=== PATIENT | male | born 1960 | race Caucasian/White ===

== ENCOUNTER 2017-06-24 12:54 | Emergency (ER) | payer OTHER ==
[~2017-06-24] VITALS: Ht 175.3 cm; Wt 77.1 kg
[~2017-06-24 12:54] MED LIST: BENADRYL50 MG ORAL; PREDNISONE50 MG ORAL
[2017-06-24] MEDS ORDERED: METOPROLOL SUCC50 MG ORAL (13:11)
[2017-06-24 13:12] VITALS: BP 114/70
[2017-06-24] MEDS ORDERED: Aspirin Baby 81mg ORAL ONE (13:30)
[2017-06-24 13:50] LABS: BASOPHILS % (AUTO) 1.8 % (0.0-2.0); EOSINOPHILS % (AUTO) 6.4 % (0.0-3.0); LYMPHOCYTES % (AUTO) 32.4 % (20.0-45.0); MEAN CORPUSCULAR HEMOGLOBIN 31.5 PG (27.0-31.0); MEAN CORPUSCULAR HGB CONC 34.9 G/DL (32.0-36.0); MEAN CORPUSCULAR VOLUME 90 FL (80-99); MEAN PLATELET VOLUME 8.4 FL (6.5-10.1); MONOCYTES % (AUTO) 11.9 % (1.0-10.0); NEUTROPHILS % (AUTO) 47.5 % (45.0-75.0); PLATELET COUNT 179 K/UL (150-450); RED BLOOD COUNT 5.34 M/UL (4.70-6.10); RED CELL DISTRIBUTION WIDTH 10.6 % (11.6-14.8); WHITE BLOOD COUNT 6.5 K/UL (4.8-10.8)
[2017-06-24 14:02] LABS: ANION GAP 11 mmol/L (5-15); CALCIUM 9.3 MG/DL (8.5-10.1); CARBON DIOXIDE 24 MMOL/L (21-32); CHLORIDE 103 MMOL/L (98-107); GLOMERULAR FILTRATION RATE > 60 mL/min (>60); POTASSIUM 3.8 MMOL/L (3.5-5.1); SODIUM 138 MMOL/L (136-145)
[2017-06-24 14:13] LABS: ALANINE AMINOTRANSFERASE 34 U/L (12-78); ALBUMIN/GLOBULIN RATIO 0.9 (1.0-2.7); ASPARTATE AMINO TRANSFERASE 19 U/L (15-37); TOTAL PROTEIN 7.8 G/DL (6.4-8.2)
[2017-06-24] MEDS ORDERED: ASPIRIN81 MG ORAL (14:30)
[2017-06-24 14:40] VITALS: BP 108/81
--- NOTE | 2017-06-24 19:05 | Emergency Room Report ---
History of Present Illness General Chief Complaint: General Complaint Source: Patient Present Illness HPI Patient is a 57-year-old male who presented after increased palpitations. Patient denied any chest pain or shortness of breath associated. The patient had intermittent symptoms for approximately 1/2 hours. He denies any chest tightness. The patient states that he took his metoprolol which had subsequently improved and is palpitations. Patient prior history of paroxysmal atrial fibrillation. He denies taking any anticoagulants. He is normally followed by Dr. Gates. Has prior history of HIV. Allergies: Coded Allergies: No Known Allergies (Verified Allergy, Mild, 05/20/09) Patient History Past Medical History: see triage record Reviewed Nursing Documentation: PMH: Agreed, PSxH: Agreed Nursing Documentation-PMH Past Medical History: No History, Except For Hx Cardiac Problems: No - A-fib, HIV Hx Hypertension: Yes Review of Systems All Other Systems: negative except mentioned in HPI Physical Exam Vital Signs Date Time Temp Pulse Resp B/P (MAP) Pulse Ox O2 Delivery O2 Flow Rate FiO2 06/24/17 13:02 96.6 78 14 115/77 99 Room Air Sp02 EP Interpretation: reviewed, normal General Appearance: normal inspection, well appearing, no apparent distress, alert, GCS 15 Head: atraumatic ENT: normal ENT inspection, hearing grossly normal, normal voice Neck: normal inspection, full range of motion, supple, no bony tend Respiratory: normal inspection, lungs clear, normal breath sounds, no respiratory distress, no retraction, no wheezing Cardiovascular #1: regular rate, rhythm, no edema Gastrointestinal: normal inspection, normal bowel sounds, non tender, soft, no guarding, no hernia Genitourinary: no CVA tenderness Musculoskeletal: normal inspection, back normal, normal range of motion Neurologic: normal inspection, alert, oriented x3, responsive, kettle chipper III-XII nml as tested, motor strength/tone normal, speech normal Psychiatric: normal inspection, judgement/insight normal, mood/affect normal Skin: normal inspection, normal color, no rash Medical Decision Making Diagnostic Impression: Primary Impression: Heart palpitations ER Course Patient presented for palpitations. The differential diagnosis included was not limited to arrhythmia, thyroid storm, sepsis, anemia, myocardial infarction , alcohol withdrawal, stimulant abuse, caffeine overdose among others. Because of complexity of patient's case laboratory testing and imaging studies were ordered. The EKG interpreted by me showed normal sinus rhythm with rate of [address] changes. The patient was noted to have some concerning findings at 1 and aVL. Patient's EKG was discussed with [facility] for possible transfer. The patient appeared to be well. Troponin was negative. Repeat EKGs were unchanged. The patient denies having any chest pain symptoms throughout time in the hospital. The patient states that he will follow up with an outpatient with his car jockey valet Dr. Land. The patient was advised to return if he began having chest pain palpitations or shortness of breath or other concerns Labs Test 06/24/17 13:20 White Blood Count 6.5 K/UL (4.8-10.8) Red Blood Count 5.34 M/UL (4.70-6.10) Hemoglobin 16.8 G/DL (14.2-18.0) Hematocrit 48.1 % (42.0-52.0) Mean Corpuscular Volume 90 FL (80-99) Mean Corpuscular Hemoglobin 31.5 PG (27.0-31.0) Mean Corpuscular Hemoglobin Concent 34.9 G/DL (32.0-36.0) Red Cell Distribution Width 10.6 % (11.6-14.8) Platelet Count 179 K/UL (150-450) Mean Platelet Volume 8.4 FL (6.5-10.1) Neutrophils (%) (Auto) 47.5 % (45.0-75.0) Lymphocytes (%) (Auto) 32.4 % (20.0-45.0) Monocytes (%) (Auto) 11.9 % (1.0-10.0) Eosinophils (%) (Auto) 6.4 % (0.0-3.0) Basophils (%) (Auto) 1.8 % (0.0-2.0) Sodium Level 138 MMOL/L (136-145) Potassium Level 3.8 MMOL/L (3.5-5.1) Chloride Level 103 MMOL/L (98-107) Carbon Dioxide Level 24 MMOL/L (21-32) Anion Gap 11 mmol/L (5-15) Blood Urea Nitrogen 20 mg/dL (7-18) Creatinine 1.0 MG/DL (0.55-1.30) Estimat Glomerular Filtration Rate > 60 mL/min (>60) Glucose Level 85 MG/DL (74-106) Calcium Level 9.3 MG/DL (8.5-10.1) Total Bilirubin 0.4 MG/DL (0.2-1.0) Aspartate Amino Transf (AST/SGOT) 19 U/L (15-37) Alanine Aminotransferase (ALT/SGPT) 34 U/L (12-78) Alkaline Phosphatase 69 U/L (46-116) Total Creatine Kinase 91 U/L (26-308) Creatine Kinase MB 1.0 NG/ML (0.0-3.6) Creatine Kinase MB Relative Index 1.0 Troponin I 0.000 ng/mL (0.000-0.056) Pro-B-Type Natriuretic Peptide 183 pg/mL (0-125) Total Protein 7.8 G/DL (6.4-8.2) Albumin 3.8 G/DL (3.4-5.0) Globulin 4.0 g/dL Albumin/Globulin Ratio 0.9 (1.0-2.7) Last Vital Signs Date Time Temp Pulse Resp B/P (MAP) Pulse Ox O2 Delivery O2 Flow Rate FiO2 06/24/17 14:40 96.6 62 17 108/81 98 Room Air Status: improved Disposition: HOME, SELF-CARE Condition: Stable Scripts Aspirin* (ASPIRIN*) 81 Mg Tab.chew 162 MG ORAL DAILY, #60 TAB Prov: Xiang Garcia 06/24/17 Referrals: NON PHYSICIAN (PCP) Patient Instructions: Palpitations, [id number] Xiang Garcia Jun 24, 2017 19:05
--- NOTE | 2017-06-25 12:49 | Diagnostic Imaging Report ---
Indication: SOB Technique: One view of the chest Comparison: 05/20/2009 Findings: Lungs and pleural spaces are clear. The heart size is normal. No significant change Impression: Negative
--- NOTE | 2017-06-27 15:38 | Cardiology Report ---
APPROVED REPORT EKG Measurement Heart [id number] Normal sinus rhythm Left anterior fascicular block ST elevation, consider lateral injury or acute infarct Abnormal ECG
== END 2017-06-24 15:29 | disposition home or self-care (01) ==
LOC: EMR 14:35
DX: R00.2 Palpitations (principal); I10 Essential (primary) hypertension; I48.91 Unspecified atrial fibrillation; Z79.899 Other long term (current) drug therapy
CPT/HCPCS: 36415; 71010; 80053; 82550; 82553; 83880; 84484; 85025; 93005; 99283

== ENCOUNTER → 2018-08-18 | Emergency (ER) | payer BC, OTHER ==
[~2018-08-18] VITALS: Ht 175.3 cm; Wt 74.8 kg
[~2018-08-18] MED LIST changes: +ASPIRIN81 MG ORAL; +ISENTRESS400 MG ORAL; +METOPROLOL SUCC50 MG ORAL
[2018-08-18 20:45] VITALS: BP 128/67
--- NOTE | 2018-08-18 20:45 | NUR ---
ED Nurse Note: pt walked in ED c/o heart "palpitation" s/s. Pt states he started feeling heart jumping sensations when he was having dinner, denies chest pain, sob, n/v/, denies alcohol or caffeine consumption, pt reports he had bronchitis about two weeks this past week, had cough, chest pain and other flu like s/s. pt AA&ox4, gcs=15, skin warm and dry, resp even and unlabored, -n/v/d, ambulates w/ steady gait, NSR on radiology clerk, ERMD at the bedside will cont monitor.
[2018-08-18 21:26] VITALS: BP 122/61
--- NOTE | 2018-08-18 21:27 | NUR ---
ED Nurse Note: pt discharge instruction provided, pt education done via discussion and hand out, pt verbalized understanding and agrees with plan, pt advised to follow up with pcp or return to ED if s/s worsen or new s/s develop. wristband removed, pt vss, ambulatory w/ steady gait, nsr.
--- NOTE | 2018-08-18 21:35 | Emergency Room Report ---
History of Present Illness General Chief Complaint: Palpitations Present Illness HPI Patient is a 58-year-old male who presented after increased palpitations. Patient had prior history of anxiety. Patient had recent upper respiratory illness. He had reportedly had increased nonproductive cough and had just finished a course of azithromycin. Patient reports having influenza-like symptoms to be an onset of illness. He reported having some dry nonproductive cough initially. Patient had previous similar symptoms and had prior EKG at this hospital 1 1/2 years ago. Patient denies any chest discomfort at this time. He reportedly takes beta-amanuel regularly. Allergies: Coded Allergies: No Known Allergies (Verified Allergy, Mild, 05/20/09) Patient History Past Medical History: see triage record Reviewed Nursing Documentation: PMH: Agreed; PSxH: Agreed Nursing Documentation-PMH Hx Cardiac Problems: No - A-fib, HIV Hx Hypertension: Yes Review of Systems All Other Systems: negative except mentioned in HPI Physical Exam Vital Signs Date Time Temp Pulse Resp B/P (MAP) Pulse Ox O2 Delivery O2 Flow Rate FiO2 08/18/18 20:43 97.5 64 16 125/83 97 Room Air General Appearance: well appearing, no apparent distress, alert, GCS 15 Head: normocephalic, atraumatic ENT: hearing grossly normal, normal voice Neck: full range of motion, supple Respiratory: lungs clear, normal breath sounds, no rhonchi, no respiratory distress, speaking full sentences Musculoskeletal: no calf tenderness Neurologic: normal gait Psychiatric: mood/affect normal Skin: no rash Medical Decision Making Diagnostic Impression: Primary Impression: Heart palpitations Additional Impression: PVCs (premature ventricular contractions) ER Course . Patient presented for palpitations. The differential diagnosis included was not limited to arrhythmia, thyroid storm, sepsis, anemia, myocardial infarction , alcohol withdrawal, stimulant abuse, caffeine overdose among others. Patient has a benign exam and does not appear to require any further imaging or laboratory testing at this time. Patient was noted to have symptoms consistent with a viral respiratory illness. Patient is having some episodes of PVCs without any concerning signs and symptoms and this reproduces the patient's sensation of palpitations. EKG interpreted by me showed normal sinus rhythm with a left anterior fascicular block. This is unchanged from patient's prior EKG. Patient was noted to have normal oxygen saturation. He has no risk factors for pulmonary embolism. Patient will be discharged home. Patient should follow-up with his primary care physician in the next few days. He is to return if he began having any increased difficulty breathing or other concerns. Last Vital Signs Date Time Temp Pulse Resp B/P (MAP) Pulse Ox O2 Delivery O2 Flow Rate FiO2 08/18/18 21:26 97.2 61 16 122/61 98 Room Air Status: improved Disposition: HOME, SELF-CARE Condition: Stable Patient Instructions: Premature Ventricular Contraction Additional Instructions: Follow up with Dr. Gates for recheck in the next few days. Return if any concerns. Xiang Garcia MD Aug 18, 2018 21:35
--- NOTE | 2018-08-19 15:46 | Cardiology Report ---
APPROVED REPORT EKG Measurement Heart [id number] Sinus bradycardia Left anterior fascicular block Abnormal ECG
== END | disposition home or self-care (01) ==
LOC: EMR 21:00
DX: R00.2 Palpitations (principal); I49.3 Ventricular premature depolarization; I10 Essential (primary) hypertension; I48.91 Unspecified atrial fibrillation
CPT/HCPCS: 93005; 99283